=== PATIENT | male | born 1940 | race African-American/Black ===

== ENCOUNTER 2017-12-29 21:12 | Emergency (ER) | payer MEDICAID, MEDICARE ==
[~2017-12-29] VITALS: Ht 180.3 cm; Wt 76.0 kg
[2017-12-30] MEDS ORDERED: TETANUS, DIPHTHERIA, PERTUSSIS VAC/PF 0.5ML (>7YR OLD) IM ONE
[2017-12-30 03:29] VITALS: BP 153/80
== END 2017-12-30 04:54 | disposition short-term general hospital (02) ==
LOC: ER 21:21
DX: S02.32XA Fracture of orbital floor, left side, initial encounter for closed fracture (principal); S02.2XXA Fracture of nasal bones, initial encounter for closed fracture; S02.40DA Maxillary fracture, left side, initial encounter for closed fracture; S02.40CA Maxillary fracture, right side, initial encounter for closed fracture; S00.81XA Abrasion of other part of head, initial encounter; M54.2 Cervicalgia; I10 Essential (primary) hypertension; F03.90 Unspecified dementia, unspecified severity, without behavioral disturbance, psychotic disturbance, mood disturbance, and anxiety; I48.91 Unspecified atrial fibrillation; W01.0XXA Fall on same level from slipping, tripping and stumbling without subsequent striking against object, initial encounter; Y93.89 Activity, other specified; Y99.8 Other external cause status; Y92.89 Other specified places as the place of occurrence of the external cause; Z86.73 Personal history of transient ischemic attack (TIA), and cerebral infarction without residual deficits; Z98.890 Other specified postprocedural states
CPT/HCPCS: 70450; 70486; 71045; 72125; 72170; 73562; 73610; 82962; 90471; 90715; 99285